=== PATIENT | male | born 1935 | race Caucasian/White ===

== ENCOUNTER 2016-11-26 11:11 | Emergency (ER) | payer OTHER, MEDICARE ==
[2016-11-26 11:25] VITALS: TEMP 97.9
--- NOTE | 2016-11-26 11:41 | EDPHY ---
H & P Stated Complaint: Has stem cell harvest and reinjection 11/15/16;Pain R hip/leg since HPI/ROS: CHIEF COMPLAINT: Right leg pain. HISTORY OF PRESENT ILLNESS: The patient is an 81-year-old male with a history of chronic lower back pain and L5/S1 fusion (performed when foot drop devleoped ) who presents with right leg pain that began a week ago after he had a stem cell injection. The stem cell injection is part of a research protocol and was performed by Dr. Simmons, [facility] in [place]. He was able to treat his right leg pain for the first few days with pain medications (hydrocodone, Aleve ) but over the past day the pain has worsened significantly. The pain is described as an aching and has been constant. It involves the right buttock and thigh, extending to the knee. The pain is worsened with walking. He called his surgeon, Dr. Simmons, who told him to present to the ED for MRI imaging. He admits ongoing numbness to the lateral side of his right thigh, not new this week. He denies weakness, paresthesias, fever, incontinence, or other complaints. REVIEW OF SYSTEMS: A ten point review of systems was performed and is negative with the exception of the items mentioned in the HPI. Source: Patient Exam Limitations: No limitations - Personal History Current Tetanus Diphtheria and Acellular Pertussis (TDAP): Yes Tetanus Vaccine Date: 04/2015 - Medical/Surgical History Hx Asthma: No Hx Chronic Respiratory Disease: No Hx Diabetes: No Hx Cardiac Disease: No Hx Renal Disease: No Hx Cirrhosis: No Hx Alcoholism: No Hx HIV/AIDS: No Hx Splenectomy or Spleen Trauma: No Other PMH: 1. Parotid cancer. 2. GERD. 3. Hypercholesterolemia. 4. Glaucoma. 5. L5S1 diskectomy and interbody fusion - Social History Smoking Status: Former smoker Additional Social History: 1. Former smoker. 2. Social alcohol use. 3. 4. 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 Vital signs reviewed. BP 145/81. Eyes: Pupils equal and round, no conjunctival injection, no discharge. Anicteric. Neck: No lymphadenopathy, supple. Respiratory: Lungs are clear to auscultation; no wheezes, rales, or rhonchi. Cardiovascular: Regular rate and rhythm; no murmur, rub, or gallop. Gastrointestinal: Abdomen is soft and nontender, no masses or organomegaly, bowel sounds normal. Skin: Warm and dry, no rashes on exposed skin, normal color. Back: Nontender to palpation over the thoracolumbar spine. Extremities: No lower extremity edema, no calf tenderness or swelling. Neurological: Alert and oriented. Moving all four extremities easily and equally. Cranial nerves II through XII are examined and are intact (visual acuity not tested). Strength is 5 over 5 bilaterally with testing of all major motor groups of both lower extremities. Deep tendon reflexes are 2+ in the biceps and knees bilaterally. Decreased sensation to light touch in right lateral thigh that the patient reports is ongoing and not new. DTRs 1+ both knees. Psychiatric: Normal affect. Constitutional: Initial Vital Signs Temperature (C) 36.6 C 11/26/16 11:21 Heart Rate 70 11/26/16 11:21 Respiratory Rate 16 11/26/16 11:21 Blood Pressure 145/81 H 11/26/16 11:21 O2 Sat (%) 95 11/26/16 11:21 O2 Delivery Mode Room Air Allergies/Adverse Reactions: aspirin [Aspirin] Allergy (Intermediate, Verified 11/26/16 11:21) HIVES/SWELLING Penicillins Allergy (Intermediate, Verified 11/26/16 11:21) HIVES/SWELLING Home Medications: Medication Instructions Recorded Glucosamine/Chondroitin 1 each PO BID 04/16/15 [Glucosamine/Chondroitin (*)] Multivitamins W-Minerals [Thera M 1 each PO DAILY 04/16/15 Plus Tablet (*)] Acetaminophen [Tylenol 325mg (*)] 325 mg PO Q4 PRN #0 tab 05/11/15 Calcium Carbonate [Tums 500MG (*)] 500 mg PO TID PRN #0 tabchew 05/11/15 Gabapentin [Neurontin 400 MG (*)] 400 mg PO TID #90 cap 05/11/15 Latanoprost 0.005% [Xalatan 0.005% 1 drops EACHEYE HS #1 opht.btl 05/11/15 (*)] Pantoprazole Sodium [Protonix 40mg 40 mg PO BID@,17 #60 tab 05/11/15 (*)] Polyethylene Glycol 3350 [Miralax 17 gm PO DAILY #30 pkt 05/11/15 17 gm (*)] Rosuvastatin Calcium [Crestor 5mg] 5 mg PO MWF@09 #20 05/11/15 Sennosides [Senokot] 2 tab PO BID #0 tab 05/11/15 oxyCODONE IR [Oxycodone Ir (*)] 5 mg PO Q4 PRN #60 tab 05/11/15 Dexamethasone [Decadron 4 MG (*)] 4 mg PO BID #10 tab 11/26/16 Medical Decision Making - Diagnostics Imaging: MRI scan of lumbar spine with and without gadolinium was reported to me by Dr. Cody Arvizu. 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 There is some enhancement of the L4 nerve root on the right. No disc edema. The L5-S1 discectomy and interbody fusion is identified. There is no evidence of epidural hematoma or fluid collection. Please see formal report. ED Course/Re-evaluation: This is an 81-year-old male whorecently receiving stem cell injections for chronic back pain. He presents today with pain radiating down his right leg and into his right buttock/thigh after receiving stem cell injections. The pain has been worsening over the past week. He has no weakness or new paresthesias. Neurologic exam reveals decreased light tones light touch sensation in L3-4 distribution on the right, otherwise normal. He does admit ongoing numbness in his lateral right thigh. He was sent to the ED for MRI imaging by his surgeon. MRI ordered. The stem cell treatment he is undergoing is part of a new trial and there is a 3-6 month window before results can be expected. He has been taking Hydrocodone and Aleve for the pain. 1349: MRI results conveyed to me negative by Dr. Arvizu, radiology. Please see Imaging section for radiologist report. I reviewed the patient's laboratory studies. CBC, BMP, CRP, and ESR are all within normal limits. 1417: MRI reported to me by Dr. Cody Arvizu. There is no evidence of epidural hematoma or abnormal fluid collection. There is some enhancement around the L4 nerve root. Nothing to suggest discitis or infection. There is central canal and foraminal stenosis. I consulted with Dr. Simmons and discussed with him the results of the MRI scan and workup. He will see the patient in his office early this coming week for reevaluation. I discussed this with the patient at this time and answered his questions. He is comfortable with the plan. I have written him a prescription for Decadron 4 mg twice daily p.o., as recommended by Dr. Simmons. His given a dose of IV Dilaudid in the emergency department with good pain relief. He will continue with his hydrocodone. We reviewed the danger signs that should prompt him to return for re-evaluation. Differential Diagnosis: I considered a differential diagnosis that includes but is not limited to diskitis, epidural hematoma, canal or foraminal stenosis, muscular low back pain , radiculopathy. - Data Points Laboratory Results: Laboratory Results 11/26/16 11:50 11/26/16 11:50 Medications Given: Discontinued Medications Hydromorphone HCl (Dilaudid) 0.5 mg IVP EDNOW ONE Stop: 11/26/16 11:56 Last Admin: 11/26/16 12:02 Dose: 0.5 mg Hydromorphone HCl (Dilaudid) 0.5 mg IVP EDNOW ONE Stop: 11/26/16 14:06 Last Admin: 11/26/16 14:10 Dose: 0.5 mg Departure - Departure Disposition: Home, Routine, Self-Care Clinical Impression: Lumbar radiculopathy Low back pain Qualifiers: Chronicity: chronic Back pain laterality: unspecified Sciatica presence: without sciatica Qualified Code(s): M54.5 - Low back pain; G89.29 - Other chronic pain Condition: Good Instructions: Lumbar Radiculopathy (ED) Additional Instructions: Dr. Simmons will see you in his office for reevaluation next week. You can expect a call from his office. Take Decadron as prescribed. Return to the emergency department if you experience any serious worsening of condition. Referrals: Cuco Casiano MD [Primary Care Provider] - As per Instructions Prescriptions: Dexamethasone [Decadron 4 MG (*)] 4 mg PO BID #10 tab Report Scribed for: Myra Pappas Report Scribed by: Alfredo Morse Date of Report: 11/26/16 Time of Report: 13:49 Physician Review and Approval Statement: 11/26/16 11:41 Portions of this note were transcribed by the medical collections. I, Dr. Myra Pappas, personally performed the history, physical exam, and medical decision- making; and confirmed the accuracy of the information in the transcribed note.
[2016-11-26] MEDS ORDERED: HYDROmorphONE/DILAUDID 1 MG/ML SYR IVP ONE ×2 (11:55→14:05)
[2016-11-26] MEDS ORDERED: GADOBUTROL 10 ML VIAL IVP ONE (12:05)
[2016-11-26 12:10] LABS: % IMMATURE GRANULYOCYTES 0.2 % (0.0-1.1); ABSOLUTE IMMATURE GRANULOCYTES 0.01 10^3/uL (0.00-0.10); ADD DIFF? NO; ADD MORPH? NO; ADD SCAN? NO; ATYPICAL LYMPHOCYTE FLAG 0 (0-99); FRAGMENT RBC FLAG 0 (0-99); HEMOGLOBIN 14.2 g/dL (13.7-17.5); LEFT SHIFT FLG 0 (0-99); LIPEMIA HEMOLYSIS FLAG 90 (0-99); MEAN CELL HEMOGLOBIN 31.1 pg (27.9-34.1); MEAN CELL HEMOGLOBIN CONCENTR. 33.8 g/dL (32.4-36.7); MEAN CELL VOLUME 91.9 fL (81.5-99.8); MEAN PLATELET VOLUME 9.1 fL (8.7-11.7); PLATELET CLUMPS FLAG 0 (0-99); PLATELET COUNT 218 10^3/uL (150-400); RED BLOOD CELL COUNT 4.57 10^6/uL (4.40-6.38); RED CELL DISTRIBUTION WIDTH 14.3 % (11.5-15.2)
[2016-11-26 12:22] LABS: ANION GAP 8 mEq/L (8-16); C-REACTIVE PROTEIN 7.2 mg/L (<10.0); CALCIUM 8.9 mg/dL (8.5-10.4); CARBON DIOXIDE 26 mEq/l (22-31); CHLORIDE 109 mEq/L (97-110); CREATININE 0.9 mg/dL (0.7-1.3); GLOMERULAR FILTRATION RATE > 60; GLUCOSE 81 mg/dL (70-100); POTASSIUM 4.3 mEq/L (3.5-5.2); SODIUM 143 mEq/L (134-144)
[2016-11-26 12:29] LABS: SEDIMENTATION RATE 9 MM/HR (0-20)
[2016-11-26 14:18] VITALS: RESP 20
[2016-11-26 14:40] VITALS: BP 102/72; PULSE 63; O2SAT 95
== END 2016-11-26 14:58 | disposition home or self-care (01) ==
DX: M54.16 Radiculopathy, lumbar region (principal); G89.29 Other chronic pain; Z85.858 Personal history of malignant neoplasm of other endocrine glands; Z87.891 Personal history of nicotine dependence
CPT/HCPCS: 72158; 96374; 96376; 99285; A9585; J1170

== ENCOUNTER → 2017-04-10 | Outpatient (CLI) | payer OTHER, MEDICARE | LOC: BMCIMAGING 10:59 | PROVIDERS: ATTEND Emergency Medicine | DX: R10.9 Unspecified abdominal pain (principal) ==

== ENCOUNTER → 2017-04-26 | Outpatient (CLI) | payer OTHER, MEDICARE | LOC: FIMAGING 12:01 | PROVIDERS: ATTEND Physician Assistant | DX: M51.36 Other intervertebral disc degeneration, lumbar region (principal); M43.16 Spondylolisthesis, lumbar region; Z98.1 Arthrodesis status ==

== ENCOUNTER → 2018-07-20 | Outpatient (CLI) | payer OTHER, MEDICARE | LOC: BMCIMAGING 07:26 | PROVIDERS: ATTEND Internal Medicine | DX: Z13.6 Encounter for screening for cardiovascular disorders (principal); I65.23 Occlusion and stenosis of bilateral carotid arteries ==